=== PATIENT | female | born 1940 | race Hispanic/Latino ===

== ENCOUNTER 2018-09-11 07:49 | Inpatient (IN) ==
[2018-09-11 08:39] LABS: BASO# 0.02 X1000 (0.0-0.2); BASO% 0.1 % (0.0-0.8); HEMATOCRIT 36.5 % (37.0-47.0); HEMOGLOBIN 12.2 g/dL (12.0-16.0); IMM GRAN# 0.09 X1000 (0.0-0.04); IMM GRAN% 0.4 % (0.0-0.5); LYMPH# 1.38 X1000 (1.2-3.4); LYMPH% 5.5 % (20.5-51.1); MCH 28.8 PG (27-31); MCHC 33.4 g/dL (33-37); MCV 86.1 FL (81-99); MONO# 1.43 X1000 (0.11-0.59); MONO% 5.7 % (1.7-9.3); NEUT# 22.04 X1000 (1.4-6.5); NEUT% 88.3 % (42.2-75.2); PLT 307 X1000 (130-400); RBC 4.24 XMIL (4.2-5.4); RDW 13.2 % (11.5-14.5); WBC 24.96 X1000 (4.8-10.8)
[2018-09-11] MEDS ORDERED: ZOSYN 3.375 GM in NS 50 ML IV ONE (08:41)
[2018-09-11] MEDS ORDERED: MORPHINE IV ONE (08:42)
[2018-09-11] MEDS ORDERED: ZOFRAN IV ONE (08:42)
[2018-09-11 08:43] LABS: BILIRUBIN URINE NEGATIVE (NEGATIVE); BLOOD URINE NEGATIVE (NEGATIVE); GLUCOSE URINE NEGATIVE (NEGATIVE); KETONE URINE 1+(Small) mg/dL (NEGATIVE); LEUKOCYTES URINE TRACE (NEGATIVE); NITRITE URINE NEGATIVE (NEGATIVE); PROTEIN URINE 1+(30 mg/dL) mg/dL (NEGATIVE); UROBILINOGEN URINE NORMAL
[2018-09-11 08:44] LABS: CLARITY CLEAR (CLEAR); COLOR YELLOW
--- NOTE | 2018-09-11 08:51 | PROVIDER DOCUMENTATION ---
HPI-Abdominal Pain/GI Problem - General Chief Complaint: Abdominal Pain Stated Complaint: ABDOMINAL PAIN Time Seen by Provider: 09/11/18 08:40 Source: patient Allergies/Adverse Reactions: Patient Allergies Allergy/AdvReac Type Severity Reaction Status Date / Time codeine AdvReac NAUSEA/VOMI Verified 09/11/18 08:49 TING - History of Present Illness-ABD Nature of Presenting Problems: Patient is a 78 year old female who presents with worsening sharp 8/10 RUQ abdomen pain with nausea and vomiting for past 2 days. Denies fever, productive cough, diarrhea, chest pain, or dysuria. Abdominal Pain Onset Location: reports: RUQ Pain Radiation: reports: back Quality of Pain: reports: sharp Severity in ED: reports: moderate Onset/Duration: reports: gradual, 2 days ago Timing: reports: still present, getting worse Activities at Onset: reports: none Modifying Factors: improves with: vomiting Associated Symptoms: denies: constipation, diarrhea, fever/chills Dark Stools Present?: reports: none noticed Rectal Bleeding: reports: none Rectal Pain: reports: none Bruising or Bleeding Gums?: No Similar Symptoms Previously?: No Recently seen or treated by another doctor?: No Review of Systems - Adult - REVIEW OF SYSTEMS - ADULT Constitutional: denies: chills, fever Eyes: denies: blurred vision Ears, Nose, Mouth & Throat: denies: throat pain Cardiovascular: denies: chest pain Respiratory: denies: excessive sputum production, shortness of breath Gastrointestinal: reports: see HPI, abdominal pain, nausea, vomiting Genitourinary: denies: dysuria Musculoskeletal: reports: see HPI, back pain. denies: neck pain Integumentary: denies: rash Neurological: denies: numbness, paresthesia Psychiatric: reports: no symptoms reported Endocrine: reports: no symptoms reported Hematologic/Lymphatic: reports: no symptoms reported Allergic/Immunologic: reports: no symptoms reported All Other Systems: Reviewed and Negative Past History - Adult - PAST MEDICAL HISTORY-ADULT Review of Records: reports: Old Records Reviewed, Nursing Assessment Review, Medications Reviewed, Social history reviewed & non-contributory. Major Childhood Illnesses: reports: denies history Cardiovascular: reports: HTN. denies: cardiac disease, CAD Respiratory: reports: denies history Gastrointestinal: reports: denies history Musculoskeletal: reports: intervertebral disc disease Neurological: reports: denies history Psychiatric: reports: denies history Endocrine/Immune: reports: Diabetes Diabetes Type: Type 2 - PRIOR SURGERIES/PROCEDURES Surgical/Procedure History: reports: hysterectomy (partial), back/neck (cervical and lumbar fusions) - IMMUNIZATION STATUS Childhood Immunizations: See Nurse Assessment Flu Vaccine: See Nurse Assessment - FAMILY HISTORY Family History: reviewed, not pertinent - SOCIAL HISTORY Smoking: denies Alcohol Use Frequency: occasionally Living Situation: family 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 negative: guarding, rebound - LYMPHATIC Lymphatic: no adenopathy - MUSCULOSKELETAL Back Exam: normal inspection, no CVA tenderness Extremity: normal range of motion, non-tender - SKIN Integumentary: normal color, normal turgor - NEUROLOGIC Neurologic: grossly normal, no motor/sensory deficits - PSYCHIATRIC Psych/Mental Status: anxious Progress - PLAN OF CARE/RESULTS Progress/Plan/Lab Results: Vital Signs - 8 hr 09/11/18 07:52 Temperature 98.2 F Pulse Rate 97 H Respiratory Rate 16 Blood Pressure 132/065 O2 Sat by Pulse Oximetry 97 Laboratory Results - last 24 hr 09/11/18 09/11/18 08:00 08:05 WBC 24.96 H RBC 4.24 Hgb 12.2 Hct 36.5 L MCV 86.1 MCH 28.8 MCHC 33.4 RDW Std Deviation 13.2 Plt Count 307 MPV 11.0 H Immature Gran % (Auto) 0.4 Neut % (Auto) 88.3 H Lymph % (Auto) 5.5 L [place] % (Auto) 5.7 Eos % (Auto) 0.0 Baso % (Auto) 0.1 Immature Gran # (Auto) 0.09 H Neut # (Auto) 22.04 H Lymph # (Auto) 1.38 [place] # (Auto) 1.43 H Eos # (Auto) 0.00 Baso # (Auto) 0.02 Urine Color YELLOW Urine Clarity CLEAR Urine pH 5.0 Ur Specific [place] 1.020 Urine Protein 1+(30 mg/dL) A Urine Ketones 1+(Small) A Urine Blood NEGATIVE Urine Nitrite NEGATIVE Urine Bilirubin NEGATIVE Urine Urobilinogen NORMAL Urine WBC TRACE A Urine Glucose NEGATIVE Orders Category Date Time Status SLED Misc. NRSG Orders DIRECTED Care 09/11/18 08:43 Active Saline Loc DIRECTED Care 09/11/18 08:20 Active NPO Diet 09/11/18 08:[address] ABD/PELVIS W/IV CONT ONLY [CT] Stat Exams 09/11/18 08:42 Ordered US GB < RUQ (LIMITED) [US] Stat Exams 09/11/18 08:41 Ordered AMYLASE [CHEM] Stat Lab 09/11/18 08:05 Received BLOOD CULTURE [BLDCUL] Stat Lab 09/11/18 08:40 Uncollected CBC WITH ELECTRONIC DIFF [HEME] Stat Lab 09/11/18 08:05 Completed COMPREHENSIVE METABOLIC PANEL [CHEM] Stat Lab 09/11/18 08:05 Received LACTATE, PLASMA [CHEM] Stat Lab 09/11/18 08:40 Uncollected LIPASE [CHEM] Stat Lab 09/11/18 08:05 Received ua [URINALYSIS PL W/POSS RFLX CULT] [URINALYSIS] Stat Lab 09/11/18 08:00 Results Morphine Med 09/11/18 08:42 Discontinued 4 mg IV NOW ONE Ondansetron [Zofran] Med 09/11/18 08:42 Discontinued 4 mg IV NOW ONE Piperacillin/Tazobactam [Zosyn] 3.375 gm Med 09/11/18 08:41 Active 0.9% Sodium Chloride Inj [Ns] 50 ml IV NOW Result Diagrams: 09/11/18 08:05 09/11/18 08:05 - ULTRASOUND (By Radiology) 1 US Study: Gallbladder Impression: Abnormal US Results: cholelithiasis with findings of cholecytitis - CONSULTS/PCP/HOSPITALIST Notification #1 *Consult/PCP/Hospitalist*: Dr. Zapata, surgeon animal control supervisor Time Discussed: 11:40 Consult Disposition: Admit #2 Consult: Dr. Gandhi, hospitalist Time Discussed: 11:47 Reason/Comments: will contact hospitalist at [facility] Consult Disposition: Admit Departure - Departure Date of Disposition Decision: 09/11/18 Time of Disposition Decision: 11:23 DIAGNOSIS: Acute cholecystitis Cholelithiasis Qualifiers: Cholelithiasis location: gallbladder Cholecystitis presence: with cholecystitis Cholecystitis acuity: acute Biliary obstruction: without biliary obstruction Qualified Code(s): K80.00 - Calculus of gallbladder with acute cholecystitis without obstruction Disposition: ADMITTED INPATIENT 09 Certified Medical Emergency: Emergent Condition: Stable Referrals and Follow-Ups: None,PCP [Primary Care Provider] - - Critical Care Note This patient required my direct & personal management of CC.: No Attestation - Physician/ HIRAL Attestation Patient care was provided by Advanced Practice Provider:: No The physician spent face to face time with patient:: Yes Advanced Practice Provider documentation review:: Supervising physician onsite and consulted in the evaluation and care of this patient. The physician did have a face to face encounter with the patient.
[2018-09-11 08:55] LABS: URINE BACTERIA 1+ /HFP; URINE CAST GRANULAR PRESENT /LPF; URINE EPITHELIAL CELLS <10 /HPF (<10); URINE SOURCE CLEAN CATCH
[2018-09-11 09:19] LABS: AGAP 16; ALBUMIN 4.3 g/dL (3.5-5.0); ALKALINE PHOSPHATASE 117 U/L (32-104); AMYLASE 19 U/L (20-200); BUN 17 mg/dL (8-22); CALCIUM 9.9 mg/dL (8.8-10.2); CHLORIDE 93 mmol/L (98-107); COSMO 271; CREATININE 0.8 mg/dL (0.5-0.9); ESTIMATED GFR > 60; GLUCOSE 145 mg/dL (70-104); GOT 11 U/L (10-30); GPT 5 U/L (10-36); LIPASE 12 U/L (13-60); SODIUM 133 mmol/L (136-145); TCO2 24 mmol/L (25-35)
--- NOTE | 2018-09-11 10:45 | Diag Imaging Result Doc PS360 ---
US GB < RUQ (LIMITED) - 09/11/2018 INDICATION: RUQ pain TECHNIQUE: COMPARISON: None FINDINGS: The gallbladder is somewhat distended. There is mild wall thickening measuring about 3 to 4 mm. There is a shadowing gallstone in the gallbladder neck. Common bile duct measures 8 mm. The liver is normal. The right kidney is without hydronephrosis. The pancreas is normal. Aorta, IVC, and main portal vein are patent. IMPRESSION: Gallstone the gallbladder neck. Mild gallbladder distention and wall thickening. Concerning for acute cholecystitis. Correlate clinically. Electronically signed by Supa Doe 09/11/2018 10:43 AM
--- NOTE | 2018-09-11 11:58 | Diag Imaging Result Doc PS360 ---
CT ABD/PELVIS W/IV CONT ONLY - 09/11/2018 INDICATION: RUQ pain COMPARISON: None FINDINGS: There is some faint linear atelectasis in the lung bases. There is a large calcified gallstone in the gallbladder neck. There is gallbladder wall thickening and surrounding inflammatory stranding. No significant biliary dilation. Common bile duct measures 7.7 mm. The liver, pancreas, spleen, adrenals, and kidneys are normal. No bowel obstruction or inflammation. Uterus is absent. Urinary bladder and rectum are normal. There are fusion changes at L4-L5. There are moderate degenerative changes of the spine. No acute or suspicious bony lesion. IMPRESSION: Acute cholecystitis. This exam was performed using automated exposure control, adjustment of mA or kV according to patient size, and/or use of iterative reconstruction technique Electronically signed by Supa Doe 09/11/2018 11:55 AM
[2018-09-11] MEDS ORDERED: DEMEROL IV PRN (13:35)
[2018-09-11] MEDS: NS 1,000 ML IV SCH (13:55)
[2018-09-11] MEDS: ZOFRAN IV PRN (13:56)
[2018-09-11] MEDS: ZOSYN 3.375 GM in NS 50 ML IV SCH ×3 (13:56→22:18)
[2018-09-11] MEDS ORDERED: ZEMURON ONE (14:13)
[2018-09-11] MEDS ORDERED: XYLOCAINE-MPF 2% ONE (14:13)
[2018-09-11] MEDS ORDERED: QUELICIN (DOSE) ONE (14:13)
[2018-09-11] MEDS ORDERED: ROBINUL ONE (14:13)
[2018-09-11] MEDS ORDERED: SODIUM CHLORIDE 0.9% 10 ML ONE (14:18)
[2018-09-11] MEDS ORDERED: FENTANYL ONE (14:18)
--- NOTE | 2018-09-11 14:19 | GENERAL SURGERY CONSULTATION ---
DATE: 09/11/2018 HISTORY OF PRESENT ILLNESS: Ms. Cook is a pleasant 78-year-old lady who reports the onset of severe right upper quadrant pain Tate. She sought medical attention and felt it was her gallbladder. This was associated with fever and nausea and vomiting. She apparently has had an attack before, but never to this extreme. Her ultrasound showed acute cholecystitis as did her CT scan. Her other medical problems include some diabetes and hypertension. PAST SURGICAL HISTORY: Previous surgery includes fusion of her cervical spine and fusion of her lumbar spine and a partial hysterectomy. SOCIAL HISTORY: She has family in town, including a son. She denies smoking and rarely drinks alcohol. She is retired. FAMILY HISTORY: Noncontributory. REVIEW OF SYSTEMS: As noted above. She does deny chest pain. PHYSICAL EXAMINATION: Vital Signs: She is afebrile. Heart rate 76, blood pressure 145/78. No cervical adenopathy. Bilateral breath sounds. Heart: Regular rate and rhythm. She has a positive Ellison sign. Abdomen: Otherwise, soft. Extremities: No peripheral edema. She has pedal pulses. Neurologic: She is awake and alert. LABORATORY: White count 25,000. Total bilirubin I.2, alkaline phosphatase 117. Lipase 12, amylase 19. ASSESSMENT: Acute calculous cholecystitis. PLAN: Laparoscopic appendectomy. I have discussed the procedure with her, the benefits and risks. She understands and wants to proceed. cc: Sunny Zapata MD
[2018-09-11] MEDS ORDERED: DIPRIVAN 1% ONE (14:20)
--- NOTE | 2018-09-11 14:24 | HISTORY AND PHYSICAL ---
ADDENDUM: Patient was seen and examined by myself. Full note dictated and discussed with nurse practitioner. Patient notes that she has been having nausea, abdominal pain in the right upper quadrant region for the past couple of days. Continued to worsen. She came to the ER and was subsequently diagnosed with acute cholecystitis. She currently is awake, alert, pleasant. She is having tenderness in the right upper quadrant. We will admit her, transfer her to [facility], consult surgery. cc: Jb Gandhi MD
[2018-09-11] MEDS ORDERED: SENSORCAINE 0.5%-EPI 1:200,000 ONE (14:29)
[2018-09-11] MEDS ORDERED: LR 1,000 ML ONE (14:29)
[2018-09-11] MEDS ORDERED: SODIUM CHLORIDE 0.9% ONE (14:29)
--- NOTE | 2018-09-11 14:30 | HISTORY AND PHYSICAL ---
CHIEF COMPLAINT: Is right upper quadrant pain with nausea and vomiting. HISTORY OF PRESENT ILLNESS: This is a 78-year-old female with a history of diabetes mellitus and hypertension who presents to the emergency room complaining of 48 hours of increasing right upper quadrant pain with nausea and vomiting. She describes this pain as a sharp pain that radiates straight through from the right upper quadrant to her back. It is exacerbated by food intake. She denies any black or bloody vomitus or stools. PAST MEDICAL HISTORY: 1. Diabetes mellitus type 2. 2. Hypertension. PAST SURGICAL HISTORY: Hysterectomy and neck and lumbar surgery. SOCIAL HISTORY: She denies alcohol, tobacco, or illicit drug use. She is new to [place], living with her son. She recently moved from [place] to be near her son. ALLERGIES: Codeine which causes nausea, vomiting. HOME MEDICATIONS: Januvia and lisinopril. REVIEW OF SYSTEMS: Discussed with patient with pertinent positives stated in the HPI. She denied any syncope, dizziness, chest pain, palpitations, any diarrhea, constipation, black or bloody vomitus or stools, any hematuria, dysuria, frequency, urgency. PHYSICAL EXAMINATION: GENERAL: This is a 78-year-old female who is lying flat in the stretcher in the emergency room in no distress. VITAL SIGNS: Blood pressure is 125/78 with a heart rate of 76, respirations are 18, temperature is 98.2 degrees oral with room air saturations 100%. HEENT: Pupils equal, round, react to light. EOMs are intact sclerae are anicteric. Head is normocephalic, atraumatic. Mucous membranes are moist. NECK: Supple with trachea midline. CARDIOVASCULAR: Regular rate and rhythm. S1 and S2 appreciated. She has no lower extremity edema. Calves are nontender bilateral with peripheral pulses palpable x4 extremities. PULMONARY: Breath sounds are clear. No increased work of breathing noted. Chest rises and falls symmetric respiration. GASTROINTESTINAL: Abdomen is soft, nondistended, tender to palpation right upper quadrant with bowel sounds in all 4 quadrants. GENITOURINARY: She has no CVA or suprapubic tenderness. NEUROLOGIC: She is alert, oriented x3. SKIN: Warm and dry. LABS: WBC is 24 with hemoglobin 12.2, hematocrit 36.5 and platelets of 307,000. Sodium 133, potassium 4, BUN 17, creatinine 0.8 with a glucose of 145. She has a total bilirubin of 1.2 with an alkaline phosphatase of 117, amylase is 19 and lipase is 12. Urinalysis is essentially negative. Abdominal ultrasound revealed gallstone in the gallbladder neck, mild gallbladder distention and wall thickening concerning for acute cholecystitis. CT of the abdomen and pelvis with IV contrast reveals acute cholecystitis. ASSESSMENT AND PLAN: 1. Acute cholecystitis. 2. Nausea and vomiting. 3. Right upper quadrant pain. 4. Diabetes mellitus. 5. Hypertension. PLAN: The patient will be admitted and transferred to [facility]. Will consult Dr. Zapata and General Surgery. She will remain NPO. Will continue with IV hydration, use Demerol for pain and Zofran for nausea. We will continue Zosyn for antibiotic coverage. She will be placed on pattern blood glucose with sliding scale insulin. We will repeat a BMP and CBC in the morning. Further treatments pending hospital course. Dictated by LEWIS Small for Jb Gandhi MD cc: LEWIS Small MD
[2018-09-11 14:59] LABS: URINE SOURCE CLEAN CATCH
[2018-09-11 15:03] LABS: BILIRUBIN URINE NEGATIVE (NEGATIVE); BLOOD URINE SMALL (NEGATIVE); COLOR YELLOW; GLUCOSE URINE NEGATIVE (NEGATIVE); KETONE URINE TRACE mg/dL (NEGATIVE); LEUKOCYTES URINE NEGATIVE (NEGATIVE); NITRITE URINE NEGATIVE (NEGATIVE); PH URINE 6.5; PROTEIN URINE 100 mg/dL (NEGATIVE); TURBIDITY URINE CLEAR (CLEAR); UROBILINOGEN URINE NORMAL (NORMAL)
[2018-09-11 15:04] LABS: UR EPITHELIAL CELLS <10 /HPF (<10); URINE BACTERIA NEGATIVE /HPF; URINE RBC <10 /HPF (<10); URINE WBC <10 /HPF (<10)
[2018-09-11] MEDS ORDERED: ZOFRAN ONE (15:18)
[2018-09-11] MEDS ORDERED: NEOSTIGMINE ONE (15:19)
--- NOTE | 2018-09-11 16:19 | Diag Imaging Result Doc PS360 ---
OPERATIVE CHOLANGIOGRAM - 09/11/2018 INDICATION: acute cholecystitis TECHNIQUE: The exam was performed by the patient's surgeon. Three images were obtained COMPARISON: None FINDINGS: Contrast was infused into the cystic duct. There is diffuse dilation of the common bile duct. There are a couple of filling defects in the lower common bile duct probably stones. There is very little passage of contrast into the duodenum. IMPRESSION: Dilation of the common bile duct. Common bile duct stones. Electronically signed by Supa Doe 09/11/2018 4:17 PM
--- NOTE | 2018-09-11 16:39 | OPERATIVE NOTE ---
PROCEDURE DATE: 09/11/2018 PROCEDURE PERFORMED: Laparoscopic cholecystectomy with operative cholangiogram. SURGEON: Sunny Zapata MD. DOWEL SETTING MACHINE OPERATOR: Sulma. PREOPERATIVE DIAGNOSIS: Acute calculous cholecystitis. POSTOP DIAGNOSIS: Acute calculous cholecystitis with choledocholithiasis. FINDINGS: Cholangiogram revealed a dilated common duct, filling defects in the gallbladder. There was flow into the duodenum. DESCRIPTION OF PROCEDURE: Satisfactory general endotracheal anesthesia achieved. Abdomen was prepped and draped in a sterile fashion. We anesthetized the skin below the umbilicus, incised the skin and carried our incision down the fascia, scored the fascia, introduced 11 trocar Optiview technique. We insufflated through this trocar under direct visualization. We introduced a 5 trocar midclavicular line, a 5 trocar near the anterior axillary line, 11 mm trocar in the midepigastrium, placed the patient reverse Trendelenburg and turned her to the left. The gallbladder was very distended. After we dissected the omentum off of it, it was very thick- walled and distended. We had to aspirate it with the aspirating needle. We then grasped the fundus and reflect it cephalad. We used a bulldog on the infundibulum. We bluntly dissected the triangle, identified the cystic artery, clipped it proximally x2, distally x1, divided it. The cystic duct was identified, clipped near the junction of the gallbladder, incised the cystic duct, introduced a Gina catheter. The findings above were noted on the cholangiogram. We removed the cholangiogram catheter, clipped the cystic duct on the opposite side the cystic ductotomy x3 and then transected the cystic duct. We then bluntly dissected the gallbladder basically away from the liver and used the cautery spatula as well. Finally we the gallbladder from the liver. A stone had fallen out of the gallbladder. We introduced the EndoCatch, placed the gallbladder as well as the stone into the EndoCatch, delivered it out of the abdominal cavity. We had to enlarge the fascial incision in order to deliver the gallbladder in toto. Looked back, irrigated, aspirated, hemostasis appeared satisfactory. We then used a Jatinder-Rhoda wound closure for the epigastrium. We then desufflated. We closed the fascia at the umbilicus under direct visualization with 2-0 Polysorb [id number] stitches. We then closed the skin at each incision with 4-0 Polysorb subcuticular stitches. Sterile OpSites were applied. She tolerated it well. Was sent to the recovery room in satisfactory condition. cc: Sunny Zapata MD
[2018-09-11] MEDS ORDERED: MORPHINE ONE ×2 (16:53→17:15)
[2018-09-11] MEDS: HUMALOG SUBQ SCH ×2 (18:31→22:18)
[2018-09-12] MEDS: NS 1,000 ML IV SCH ×2 (01:57→17:17)
[2018-09-12] MEDS: ZOSYN 3.375 GM in NS 50 ML IV SCH ×4 (02:00→22:04)
[2018-09-12] MEDS: NORCO-7.5 PO PRN ×2 (02:02→11:35)
[2018-09-12 06:12] LABS: BASO# 0.01 X1000 (0.0-0.2); BASO% 0.1 % (0.0-0.8); EOS# 0.01 X1000 (0.0-0.7); EOS% 0.1 % (0.0-10.0); HEMATOCRIT 28.2 % (37.0-47.0); IMM GRAN# 0.04 X1000 (0.0-0.04); IMM GRAN% 0.3 % (0.0-0.5); LYMPH# 0.73 X1000 (1.2-3.4); LYMPH% 5.4 % (20.5-51.1); MCH 28.1 PG (27-31); MCHC 31.9 g/dL (33-37); MCV 88.1 FL (81-99); MONO# 0.89 X1000 (0.11-0.59); MONO% 6.6 % (1.7-9.3); MPV 10.9 FL (7.4-10.4); NEUT# 11.88 X1000 (1.4-6.5); NEUT% 87.5 % (42.2-75.2); PLT 234 X1000 (130-400); WBC 13.56 X1000 (4.8-10.8)
[2018-09-12] MEDS: HUMALOG SUBQ SCH ×4 (06:13→22:09)
[2018-09-12] MEDS: PRILOSEC PO SCH (06:15)
[2018-09-12 06:28] LABS: AGAP 8; ALB/GLOB RATIO 0.9; ALBUMIN 2.9 g/dL (3.5-5.0); ALKALINE PHOSPHATASE 88 U/L (32-104); BUN 14 mg/dL (8-22); CALCIUM 8.4 mg/dL (8.8-10.2); CHLORIDE 100 mmol/L (98-107); COSMO 268; CREATININE 0.6 mg/dL (0.5-0.9); ESTIMATED GFR > 60; GLUCOSE 127 mg/dL (70-104); GOT 15 U/L (10-30); GPT 8 U/L (10-36); POTASSIUM 3.8 mmol/L (3.5-5.1); SODIUM 133 mmol/L (136-145); TCO2 25 mmol/L (25-35); TOTAL BILIRUBIN 0.67 mg/dL (0.20-1.00); TOTAL PROTEIN 6.1 g/dL (6.3-8.3)
--- NOTE | 2018-09-12 07:00 | EKG Report ---
Test Performed on : 09/11/2018 4:04:39 PM Test Reason : POST OP Blood Pressure : / mmHG Vent. Rate : 087 BPM Atrial Rate : 087 BPM P-R Int : 192 ms QRS Dur : 096 ms QT Int : 358 ms P-R-T Axes : 029 -17 003 degrees QTc Int : 430 ms Normal sinus rhythm. Normal ECG No previous ECGs available Confirmed by Ramirez BARKER, Torres Joya ([id number]) on 09/14/2018 9:40:05 AM
--- NOTE | 2018-09-12 08:22 | GENERAL SURGERY PROGRESS NOTE ---
DATE: 09/12/2018 SUBJECTIVE: Ms. Cook is postop day 1 after laparoscopic cholecystectomy. She slept well during the night. Her white count is down to 13,000. Her alkaline phosphatase is down to 88. She is awaiting consultation for ERCP and for choledocholithiasis. cc: Sunny Zapata MD
--- NOTE | 2018-09-12 10:32 | GASTROENTEROLOGY CONSULTATION ---
DATE: 09/12/2018 ADMITTING PHYSICIAN: Dr. Zapata. REASON FOR CONSULTATION: Choledocholithiasis. HISTORY OF PRESENT ILLNESS: Ms. Cook is a 78-year-old female who was admitted on 09/11/2018 for right upper quadrant pain, nausea, and vomiting. She had elevated white count, and ultrasound showed gallstones in the gallbladder neck, mild gallbladder wall distention and wall thickening concerning for acute cholecystitis. She also had a CT scan done, which showed evidence of acute cholecystitis. She had a cholecystectomy done by Dr. Zapata on 09/29/2018, and intraoperative cholangiogram showed evidence of dilated common bile duct and filling defects in the gallbladder. There was flow into the duodenum, and this was confirmed by the Radiology reading as well. Gastroenterology was consulted for further management of CBD stones. I spoke with the patient. The patient has discomfort in the abdomen. She denies any fevers, rigors, or chills. She denies any nausea or vomiting. PAST MEDICAL HISTORY: Type 2 diabetes, hypertension. PAST SURGICAL HISTORY: 1. Hysterectomy. 2. Neck and lumbar surgery. 3. Cholecystectomy yesterday. SOCIAL HISTORY: She denies history of alcohol, tobacco, or illicit drug abuse. She is new to [place]. She is living with her son. She recently moved from [place] to be with her son. ALLERGIES: Codeine, which causes nausea and vomiting. MEDICATIONS IN THE HOSPITAL: Include hydrocodone/acetaminophen, Humalog, meperidine, normal saline at 75 mL per hour, Prilosec 40 mg daily, Zofran 4 mg IV every 4 hours as needed, Zosyn IV every 6 hours. DIET: She is currently on a clear liquid diet. REVIEW OF SYSTEMS: Denies any fevers, rigors, chills, chest pain, shortness of breath, dyspnea at rest. Does complain of abdominal discomfort in the right upper quadrant. She denies any nausea or vomiting. She denies any neurologic complaints. She denies any blood in the stool or vomiting blood. PHYSICAL EXAMINATION: Vital Signs: Temperature 97.9 degrees, pulse of 78, respiratory rate 18, blood pressure 134/61, saturating 100% on nasal cannula. Body weight of 135 pounds 14.4 ounces. BMI 25 kg. General: Ms. Cook is moderately built and nourished, lying in bed in no acute distress. HEENT: Pale conjunctivae. No icterus. Pupils equal, reactive to light. Neck: Supple. Abdomen: Discomfort in the periumbilical region and right upper quadrant. No recent surgery. No rebound. Extremities: No cyanosis or clubbing. Neurologic: Alert, awake, and oriented x3. IMAGING AND LABORATORY DATA: Hemoglobin and hematocrit are 9 and 28.2, white count of 13.56, platelet count of 234,000, MCV of 88.1. Sodium 133, potassium 3.8, chloride 100, BUN 14, creatinine 0.6, glucose of 127, calcium is 8.4. Total bilirubin is 0.67, AST 15, ALT 8, alkaline phosphatase 88, total protein 6.2, albumin of 2.9. Amylase of 19, lipase of 12. Lactate of 1.2. Urinalysis: Positive protein, positive ketones, trace ketones, small amount of blood, trace white cells. Blood culture x2 were drawn yesterday. They are currently pending. CT of the abdomen and pelvis done showed acute cholecystitis, moderate degenerative changes of the spine were also noted. Ultrasound of the abdomen done on 09/11/2018 showed gallstones in the gallbladder neck, mild gallbladder distention and wall thickening concerning for acute cholecystitis. IMPRESSION AND PLAN: 1. Choledocholithiasis. Will schedule for endoscopic retrograde cholangiopancreatography tomorrow with Dr. Lopez. The risks, benefits, indications, and alternatives were discussed with the patient, and all questions were answered. She will be nothing by mouth past midnight. 2. Gastrointestinal prophylaxis with proton pump inhibitor once daily. 3. We will keep her on intravenous Zosyn for now. 4. Pain control per the primary team. 5. She is on sliding scale insulin for diabetes. The above plan was discussed with the patient, and all questions were answered. Please call us with any further questions. cc: MD Sunny Salas MD MTDD
--- NOTE | 2018-09-12 11:16 | PROGRESS NOTE ---
DATE: 09/12/2018 SUBJECTIVE: This morning, Ms. Cook refers to be feeling a little better. Still has some abdominal discomfort. She underwent laparoscopic cholecystectomy with intraoperative cholangiogram yesterday with Dr. Zapata. She did seem to have some stones and the CBD was found dilated, so there is a plan for an ERCP today with the GI group. OBJECTIVELY: Current vitals: Blood pressure is 134/61, pulse of 76, respirations 18, temperature is 97.9 degrees. The patient was saturating 100%. General: Ms. Cook is a 78-year-old female. She is in bed. No distress. HEENT: Mucosa is pink and moist. Anicteric, acyanotic. Neck: Supple. Chest: Clear to auscultation. No crepitations. No rhonchi. Cardiovascular: Regular rate and rhythm. Abdomen: Soft, tender everywhere. There are some new wounds on the anterior abdominal wall suggestive of the laparoscopic site. 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 LABORATORY DATA: WBC is down to 13.56, hemoglobin is 9, platelet count of 234,000. Chemistry is also reviewed. Sodium is 133. The rest of chemistry is completely normal. Liver enzymes are within normal range. So far blood cultures are still pending. I have reviewed the operative report. ASSESSMENT: 1. Cholelithiasis with acute cholecystitis. Patient is status post laparoscopic cholecystectomy with intraoperative cholangiogram. Today is day 1 postop. 2. Choledocholithiasis with dilated common bile duct. The patient is pending ERCP today. 3. Diabetes mellitus. Controlled. 4. Hypertension. PLAN: So in general Ms. Cook is doing a little better. She is day 1 post laparoscopic cholecystectomy with intraoperative cholangiogram. She has choledocholithiasis with dilated common bile duct. There is a plan for ERCP with stone removal today. The patient is on IV antibiotics. Her disposition is going to depend on the rest of the hospital course and further recommendations from the other subspecialties involved. cc: Mark Clemons MD
[2018-09-12] MEDS ORDERED: HALL'S COUGH LOZENGE MT PRN (17:03)
[2018-09-12] MEDS: PERIDEX MT SCH (22:04)
[2018-09-13] MEDS: ZOSYN 3.375 GM in NS 50 ML IV SCH ×4 (05:02→22:24)
[2018-09-13 05:56] LABS: BASO# 0.01 X1000 (0.0-0.2); BASO% 0.1 % (0.0-0.8); EOS# 0.05 X1000 (0.0-0.7); EOS% 0.5 % (0.0-10.0); HEMATOCRIT 25.1 % (37.0-47.0); IMM GRAN# 0.03 X1000 (0.0-0.04); IMM GRAN% 0.3 % (0.0-0.5); LYMPH# 0.92 X1000 (1.2-3.4); LYMPH% 10.1 % (20.5-51.1); MCH 28.3 PG (27-31); MCHC 31.9 g/dL (33-37); MCV 88.7 FL (81-99); MONO# 0.67 X1000 (0.11-0.59); MONO% 7.4 % (1.7-9.3); MPV 10.2 FL (7.4-10.4); NEUT# 7.42 X1000 (1.4-6.5); NEUT% 81.6 % (42.2-75.2); PLT 264 X1000 (130-400); RBC 2.83 XMIL (4.2-5.4); RDW 12.9 % (11.5-14.5)
[2018-09-13 06:09] LABS: AGAP 10; ALBUMIN 2.8 g/dL (3.5-5.0); BUN 11 mg/dL (8-22); CHLORIDE 104 mmol/L (98-107); COSMO 275; CREATININE 0.6 mg/dL (0.5-0.9); ESTIMATED GFR > 60; GLUCOSE 90 mg/dL (70-104); PHOSPHORUS 2.2 mg/dL (2.7-4.5); POTASSIUM 3.5 mmol/L (3.5-5.1); SODIUM 138 mmol/L (136-145); TCO2 24 mmol/L (25-35)
[2018-09-13] MEDS: PRILOSEC PO SCH (06:52)
[2018-09-13] MEDS: HUMALOG SUBQ SCH ×4 (07:24→22:24)
[2018-09-13] MEDS: NS 1,000 ML IV SCH (10:56)
[2018-09-13] MEDS: PERIDEX MT SCH ×2 (10:56→22:24)
[2018-09-13] MEDS ORDERED: DIPRIVAN 1% ONE ×2 (11:55→12:12)
[2018-09-13] MEDS ORDERED: XYLOCAINE-MPF 2% ONE (11:57)
[2018-09-13] MEDS ORDERED: GLUCAGON ONE (12:11)
--- NOTE | 2018-09-13 12:47 | Diag Imaging Result Doc PS360 ---
EXAM: ERCP-BILIARY AND PANCREATIC HISTORY: CBD stones TECHNIQUE: ERCP, four views COMPARISON: None. FINDINGS: There are several stones within the dilated common bile duct. A common bile duct stent was placed. IMPRESSION: Common bile duct stones with a stent placed. Electronically signed by Felice Jamison 09/13/2018 12:44 PM
--- NOTE | 2018-09-13 13:32 | GENERAL SURGERY PROGRESS NOTE ---
DATE: 09/13/2018 Ms. Cook is afebrile. Her hemodynamics are good. She had her ERCP and stent placed today. Her white count is down to 9000. The plan will be to discharge her tomorrow if she continues well. cc: Sunny Zapata MD
--- NOTE | 2018-09-13 13:32 | OPERATIVE NOTE ---
PROCEDURE DATE: 09/13/2018 PROCEDURE: 1. Endoscopic retrograde cholangiopancreatography. 2. Endoscopic sphincterotomy, 3. Endoscopic stone removal with basket. 4. Endoscopic stent placement. PREOPERATIVE DIAGNOSIS: Choledocholithiasis. POSTOPERATIVE DIAGNOSIS: Two 1 cm stones were removed and stented. DESCRIPTION OF PROCEDURE: After informed consent and adequate intravenous sedation, the endoscope introduced the esophagus, stomach, and duodenum. The patient has a large juxta-ampullary diverticulum. The ampulla is within the diverticulum. It was cannulated and a wide sphincterotomy was done. Stones were removed and a short 5 cm 10-[place] stent was deployed. The scope was withdrawn. The patient tolerated the procedure well without any immediate complications. cc: Daisy Lopez MD
[2018-09-13] MEDS: NORCO-7.5 PO PRN (14:21)
--- NOTE | 2018-09-13 15:36 | PROGRESS NOTE ---
DATE: 09/13/2018 SUBJECTIVE: The patient is resting comfortably in bed. OBJECTIVE: Vital signs: Temperature 98.3 degrees, pulse 71, respirations 12, blood pressure 149/54, oxygen saturation 98%. HEENT: Atraumatic, normocephalic. Cardiovascular system: S1, S2. Respiratory system: Has evidence of good air entry bilaterally. Abdomen: Soft, nontender. No masses felt. Extremities: No evidence of edema. Central nervous system: No obvious focal deficits noted. LABS: WBC is 9.01, hematocrit is 25.4, with a platelet count of 264,000. Sodium is 138, potassium 3.5, chloride is 104, bicarb is 24, BUN is 11, creatinine 0.6. ASSESSMENT AND PLAN: 1. Cholelithiasis with acute cholecystitis. The patient is status post laparoscopic cholecystectomy and seems to be doing well. Surgery is following. 2. Choledocholithiasis with dilated common bile duct. The patient is status post ERCP. Two 1 cm stones were removed and stent was put in place. 3. Diabetes mellitus. Monitor blood sugar levels and maintain patient on sliding scale insulin. 4. Hypertension. Optimize blood pressure control. 5. Deep vein thrombosis prophylaxis. SCDs. 6. Gastrointestinal prophylaxis. PPI. cc: Freddy Fitzgerald MD
[2018-09-13] MEDS: ZOFRAN IV PRN (22:24)
[2018-09-14] MEDS: ZOSYN 3.375 GM in NS 50 ML IV SCH ×2 (03:55→11:05)
[2018-09-14] MEDS: NS 1,000 ML IV SCH ×2 (03:56→07:25)
[2018-09-14] MEDS: PRILOSEC PO SCH (06:21)
[2018-09-14] MEDS: HUMALOG SUBQ SCH (07:25)
[2018-09-14 08:14] VITALS: BP 142/67
[2018-09-14] MEDS ORDERED: NORVASC PO SCH (09:00)
[2018-09-14] MEDS: PERIDEX MT SCH (11:01)
--- NOTE | 2018-09-14 11:31 | GENERAL SURGERY PROGRESS NOTE ---
DATE: 09/14/2018 SUBJECTIVE: Ms. Cook is 2 days after laparoscopic cholecystectomy, 1 day after ERCP with stone extraction and stent placement. She is afebrile. Hemodynamics are good. She has taken liquids without difficulty. Her abdominal pain is well controlled. PLAN: The plan is to allow her to go home. She is to stay with liquids today. Avoid fatty foods for 1 week. She will return to see me in the office in a week, and follow up with Dr. Lopez in the future as well. cc: Sunny Zapata MD
--- NOTE | 2018-09-14 23:43 | PROVIDER PROGRESS NOTE ---
Progress Note SUBJECTIVE: No acute overnight events. Tolerating diet. OBJECTIVE: Last Vital Signs Temp 98.7 F 09/14/18 08:14 Pulse 71 09/14/18 08:55 Resp 16 09/14/18 08:55 BP 142/67 09/14/18 08:14 Pulse Ox 97 09/14/18 08:55 Height 5 ft 1 in Weight 135 lb 14.4 oz GEN: awake, alert, NAD HEENT: anicteric, MMM CV: RRR, no murmurs PULM: CTAB, no wheezing ABD: soft NT/ND, NABS EXT: No cce NEURO: non focal LABS: none PROCEDURE DATE: 09/13/2018 PROCEDURE: 1. Endoscopic retrograde cholangiopancreatography. 2. Endoscopic sphincterotomy, 3. Endoscopic stone removal with basket. 4. Endoscopic stent placement. PREOPERATIVE DIAGNOSIS: Choledocholithiasis. POSTOPERATIVE DIAGNOSIS: Two 1 cm stones were removed and stented. A/P: Ms. Leah Cook is a 78 year old woman admitted with acute cholecystitis s/p laporascopic cholecystectomy on 09/11 c/b choledocholithiasis requiring ERCP with sphincterotomy, removal of stones, and stent placement. She is doing well this AM without evidence of pancreatitis or fever. Plan for repeat ERCP in 4-6 weeks for stent removal. Patient has scheduled follow-up appointment with Dr. Lopez. Patient discharged today.
--- NOTE | 2018-09-15 07:15 | DISCHARGE SUMMARY ---
ADMISSION DATE: 09/11/2018 DISCHARGE DATE: 09/14/2018 PRINCIPAL DIAGNOSIS: Acute cholecystitis status post laparoscopic cholecystectomy. SECONDARY DIAGNOSES: 1. Choledocholithiasis status post endoscopic retrograde cholangiopancreatography with extraction of 2 stones. The patient currently has a stent. 2. Diabetes mellitus. 3. Hypertension. DISCHARGE MEDICATIONS: 1. Re[place] 7.5/325 every 4 hours as needed. 2. Tramadol 50 mg p.o. 3 times a day. 3. Aspirin 81 mg p.o. daily. 4. Vitamin D 4000 units p.o. daily. 5. Vitamin B12, 2500 mcg p.o. daily. 6. Osteo Bi-Flex 1 p.o. daily. 7. Lisinopril as directed . 8. Meloxicam 7.5 daily. 9. Januvia 100 mg p.o. daily. CONSULTATIONS DONE DURING THIS HOSPITAL STAY: 1. Dr. Nicko Rodriguez, Gastroenterology. 2. Dr. Sunny velazquez, General Surgery. PROCEDURES DONE DURING THIS HOSPITAL STAY: Laparoscopic cholecystectomy 09/11/2018. ERCP/endoscopic sphincterotomy/endoscopic stone removal with basket/endoscopic stent placement. HOSPITAL COURSE: Ms Leah Cook is a 78-year-old female who was admitted to the hospital with a diagnosis of acute cholecystitis. The patient was seen by the surgical team, had a laparoscopic cholecystectomy with operative cholangiogram done on 09/11/2018. The patient was also seen by the GI team and had ERCP with sphincterotomy and also stone removal with basket as well as stent placement. This was done on 09/13/2018. At this time, patient has done well. She is stable. PHYSICAL EXAMINATION: Vital signs: Today, temperature 98.7 degrees, pulse 74, respirations 20, blood pressure 143/67, oxygen 99%. HEENT: Atraumatic, normocephalic. Cardiovascular system: S1, S2. Respiratory system: Has evidence of good air entry bilaterally. Abdomen: Soft, nontender. No masses. Extremities: No evidence of edema. Central nervous system: No evidence of focal deficits noted. PLAN: The patient can be discharged home today. She will need to follow up with Dr. Velazquez as well as Dr. Lopez. She also needs to follow up with her primary care physician in the outpatient. cc: MD FRANCISCO Mccoy
== END 2018-09-14 11:50 | disposition home or self-care (01) | DRG 419 ==
LOC: P.ED 07:49 → SUATTDRO 13:06 → 4N 13:06
PROVIDERS: ATTEND Internal Medicine
PROC: EN.ERCP (2018-09-13 11:53)
CPT/HCPCS: 74177; 74300; 74330; 76705; 80053; 80069; 81001; 82150; 82948; 83605; 83690; 85025; 87040; 88304; 93005; 93010; 94761; 96365; 96375; 99285; A9270; J0330; J1610; J2270; J2405; J2543; J3010; J7030; J7120; Q9966; Q9967; XXXXX